=== PATIENT | male | born 1940 | race Caucasian/White ===

== ENCOUNTER 2019-07-29 07:24 | Day surgery (SDC) | payer OTHER ==
[2019-07-29 08:35] VITALS: BMI 24.3
[2019-07-29 10:01] VITALS: TEMP 97.3
[2019-07-29 11:23] VITALS: BP 128/85; PULSE 77
--- NOTE | 2019-07-30 16:20 | PATH ---
Surgical Pathology Report Patient Name: BARBARA FERGUSON [facility]. Rec. #: [id number] /Age/Gender: 1940 (Age: 78) / M Account: [id number] Location: [facility]-ENDOSCOPY Taken: 07/29/2019 Received: 07/29/2019 Reported: 07/30/2019 Physicians: Marques Cano M.D. Specimen(s) Received A: CECUM B: ILIEUM C: RIGHT COLON D: TRANSVERSE COLON E: DESCENDING COLON F: SIGMOID COLON G: POLYP SIGMOID H: RECTUM Clinical History Chronic quiescent ulcerative colitis, history of serrated polyp Postoperative diagnosis: quiescent ulcerative colitis, sigmoid polyp, diverticulosis Final Diagnosis A. CECUM, BIOPSY: COLONIC MUCOSA WITH MILD CRYPT ARCHITECTURAL DISTORTION. NO HISTOLOGIC EVIDENCE OF ACTIVE INFLAMMATION. SEE COMMENT. B. ILEUM, BIOPSY: SMALL INTESTINAL MUCOSA WITH NO SIGNIFICANT PATHOLOGIC CHANGE. THE ARCHITECTURE OF THE VILLI APPEARS NORMAL. SEE COMMENT. C. RIGHT COLON, BIOPSY: COLONIC MUCOSA WITH MILD CRYPT ARCHITECTURAL DISTORTION. NO HISTOLOGIC EVIDENCE OF ACTIVE INFLAMMATION. SEE COMMENT. D. TRANSVERSE COLON, BIOPSY: COLONIC MUCOSA WITH MILD CRYPT ARCHITECTURAL DISTORTION AND REACTIVE LYMPHOID AGGREGATE. NO HISTOLOGIC EVIDENCE OF ACTIVE INFLAMMATION. SEE COMMENT. E. DESCENDING COLON, BIOPSY: SUPERFICIAL PORTION OF COLONIC MUCOSA WITH NO SIGNIFICANT PATHOLOGIC CHANGE. NO HISTOLOGIC EVIDENCE OF ACTIVE INFLAMMATION. SEE COMMENT. F. SIGMOID COLON, BIOPSY: COLONIC MUCOSA WITH MILD CRYPT ARCHITECTURAL DISTORTION. NO HISTOLOGIC EVIDENCE OF ACTIVE INFLAMMATION. SEE COMMENT. G. SIGMOID POLYP, BIOPSY: HYPERPLASTIC POLYP. H. RECTUM, BIOPSY: COLONIC MUCOSA WITH MILD CRYPT ARCHITECTURAL DISTORTION AND SURFACE HYPERPLASTIC CHANGE. NO HISTOLOGIC EVIDENCE OF ACTIVE INFLAMMATION. SEE COMMENT. Comment: There is no dysplasia, granuloma, parasite or viral inclusions. The above histologic features in combination with the colonoscopy findings are consistent with a quiescent phase of known ulcerated colitis. Please correlate clinically. Electronically Signed Luca Chi M.D. Gross Description A. Received in formalin, labeled "cecum biopsy" are 2 khan, irregular portions of soft tissue are 0.3 and 0.7 cm. in greatest dimension. The specimens are submitted in toto in one cassette. B. Received in formalin, labeled "ileum biopsy" are 2 khan, irregular portions of soft tissue measuring 0.2 and 0.3 cm. in greatest dimension. The specimens are submitted in toto in one cassette. C. Received in formalin, labeled "right colon biopsy" are 4 khan, irregular portions of soft tissue ranging from 0.2-0.4 cm. in greatest dimension. The specimens are submitted in toto in one cassette. D. Received in formalin, labeled "transverse colon biopsy" are 4 khan, irregular portions of soft tissue ranging from 0.3-0.5 cm. in greatest dimension. The specimens are submitted in toto in one cassette. E. Received in formalin, labeled "descending colon biopsy" are 2 khan, irregular portions of soft tissue measuring 0.2 and 0.3 cm. in greatest dimension. The specimens are submitted in toto in one cassette. F. Received in formalin, labeled "sigmoid colon biopsy" are 4 khan, irregular portions of soft tissue ranging from 0.2-0.3 cm. in greatest dimension. The specimens are submitted in toto in one cassette. G. Received in formalin, labeled "sigmoid polyp biopsy" are 2 khan, irregular portions of soft tissue measuring 0.2 and 0.6 cm. in greatest dimension. The specimens are submitted in toto in one cassette. H. Received in formalin, labeled "rectum biopsy" are 5 khan, irregular portions of soft tissue ranging from 0.2-0.5 cm. in greatest dimension. The specimens are submitted in toto in one cassette. 07/29/2019 saudi07/29/2019
== END 2019-07-29 10:30 | disposition home or self-care (01) ==
LOC: JASU-ENDO 07:24
PROVIDERS: ATTEND Internal Medicine Gastroenterology
PROC: 0DBE8ZX Excision of Large Intestine, Via Natural or Artificial Opening Endoscopic, Diagnostic (ICD-10-PCS; 2019-07-29)
PROC: 0DBN8ZX Excision of Sigmoid Colon, Via Natural or Artificial Opening Endoscopic, Diagnostic (ICD-10-PCS; 2019-07-29)
PROC: 0DBB8ZX Excision of Ileum, Via Natural or Artificial Opening Endoscopic, Diagnostic (ICD-10-PCS; principal; 2019-07-29 08:45)
DX: Z12.11 Encounter for screening for malignant neoplasm of colon (principal); D12.5 Benign neoplasm of sigmoid colon; K57.30 Diverticulosis of large intestine without perforation or abscess without bleeding

== ENCOUNTER 2020-10-28 04:25 | Day surgery (SDC) | payer OTHER ==
[2020-10-25 15:42] VITALS: BMI 23.9
[~2020-10-28 04:25] MED LIST: DEXAMETHASONE SOD PHOSPHATE 10 MG/1 ML VIAL IM ONE; LIDOCAINE HCL 1% PRESERVATIVE FREE - 30ML VIAL IJ ONE
[2020-10-28] MEDS ORDERED: LIDOCAINE HCL/PF 1% SDV 5ML VIAL ONE ×2 (07:17→07:31)
[2020-10-28] MEDS ORDERED: DEXAMETHASONE SOD PHOSPHATE/PF 10 MG/ML SDV ONE (07:17)
[2020-10-28] MEDS ORDERED: TRIAMCINOLONE ACET 40MG/1ML VIAL ONE (07:17)
[2020-10-28] MEDS ORDERED: BUPIVACAINE HCL/PF 0.75% 10 ML VIAL ONE (07:19)
[2020-10-28] MEDS ORDERED: LIDOCAINE HCL 1% PRESERVATIVE FREE - 30ML VIAL IJ ONE (08:59)
[2020-10-28] MEDS ORDERED: IOHEXOL 180 MG/1 ML ML IJ ONE (09:01)
[2020-10-28] MEDS ORDERED: DEXAMETHASONE SOD PHOSPHATE 10 MG/1 ML VIAL IM ONE (09:13)
[2020-10-28 09:47] VITALS: PULSE 71; TEMP 97.8
[2020-10-28 11:38] VITALS: BP 118/80
== END 2020-10-28 10:45 | disposition home or self-care (01) ==
LOC: JASU-SURG 04:25
PROVIDERS: ATTEND Pain Medicine Pain Medicine
PROC: 3E0R33Z Introduction of Anti-inflammatory into Spinal Canal, Percutaneous Approach (ICD-10-PCS; 2020-10-28)
PROC: 3E0R3BZ Introduction of Anesthetic Agent into Spinal Canal, Percutaneous Approach (ICD-10-PCS; principal; 2020-10-28 08:30)
DX: M54.16 Radiculopathy, lumbar region (principal)
CPT/HCPCS: 76000-TC-FY; J1100

== ENCOUNTER 2021-10-11 05:40 | Day surgery (SDC) | payer OTHER ==
[2021-10-04 15:37] VITALS: BMI 26.2
[2021-10-11 09:37] VITALS: TEMP 97.7
[2021-10-11 10:10] VITALS: BP 129/70; PULSE 74
== END 2021-10-11 10:35 | disposition home or self-care (01) ==
LOC: JASU-ENDO 05:40
PROVIDERS: ATTEND Internal Medicine Gastroenterology
PROC: 0DBL8ZX Excision of Transverse Colon, Via Natural or Artificial Opening Endoscopic, Diagnostic (ICD-10-PCS; principal; 2021-10-11 08:30)
DX: Z12.11 Encounter for screening for malignant neoplasm of colon (principal); D12.3 Benign neoplasm of transverse colon; K57.30 Diverticulosis of large intestine without perforation or abscess without bleeding
CPT/HCPCS: 88305-TC

== ENCOUNTER 2024-08-07 04:18 | Day surgery (SDC) | payer OTHER ==
[2024-08-05 11:22] VITALS: BMI 25.9
[2024-08-07 08:38] VITALS: TEMP 97.7
[2024-08-07 09:05] VITALS: RESP 16
[2024-08-07 09:07] VITALS: BP 138/66; PULSE 64
== END 2024-08-07 09:19 | disposition home or self-care (01) ==
LOC: JASU-ENDO 04:18
PROVIDERS: ATTEND Internal Medicine Gastroenterology
PROC: 0DBL8ZX Excision of Transverse Colon, Via Natural or Artificial Opening Endoscopic, Diagnostic (ICD-10-PCS; 2024-08-07)
PROC: 0DBN8ZX Excision of Sigmoid Colon, Via Natural or Artificial Opening Endoscopic, Diagnostic (ICD-10-PCS; 2024-08-07)
PROC: 0DBP8ZX Excision of Rectum, Via Natural or Artificial Opening Endoscopic, Diagnostic (ICD-10-PCS; 2024-08-07)
PROC: 0DBF8ZX Excision of Right Large Intestine, Via Natural or Artificial Opening Endoscopic, Diagnostic (ICD-10-PCS; 2024-08-07)
PROC: 0DBB8ZX Excision of Ileum, Via Natural or Artificial Opening Endoscopic, Diagnostic (ICD-10-PCS; 2024-08-07)
PROC: 0DBM8ZX Excision of Descending Colon, Via Natural or Artificial Opening Endoscopic, Diagnostic (ICD-10-PCS; 2024-08-07)
PROC: 0DBH8ZX Excision of Cecum, Via Natural or Artificial Opening Endoscopic, Diagnostic (ICD-10-PCS; principal; 2024-08-07 08:00)
DX: Z12.11 Encounter for screening for malignant neoplasm of colon (principal); K57.30 Diverticulosis of large intestine without perforation or abscess without bleeding; Z87.19 Personal history of other diseases of the digestive system
CPT/HCPCS: 88305-TC